=== PATIENT | female | born 1990 | race Caucasian/White ===

== ENCOUNTER 2023-10-01 05:52 | Emergency (ER) | payer MEDICAID ==
[~2023-10-01] VITALS: Ht 170.2 cm; Wt 69.4 kg
[2023-10-01] MEDS ORDERED: Birth control (06:12)
[2023-10-01] MEDS ORDERED: HYDROMORPHONE 1 MG/1 ML DISP.SYRIN ONE (06:45)
[2023-10-01] MEDS ORDERED: ONDANSETRON 4 MG/2 ML VIAL ONE (06:45)
[2023-10-01] MEDS: HYDROMORPHONE 1 MG/1 ML DISP.SYRIN IV ONE (06:49)
[2023-10-01] MEDS: ONDANSETRON 4 MG/2 ML VIAL IV ONE (06:49)
[2023-10-01] MEDS: IV NS 1000 ML 1,000 ML IV ONE ×2 (06:49→07:41)
[2023-10-01 06:51] LABS: BASOPHILS % (AUTO) 0.3 % (0.0-2.0); EOSINOPHILS % (AUTO) 0.3 % (0.0-7.0); HEMATOCRIT 41.1 % (31.2-41.9); HEMOGLOBIN 13.8 g/dL (10.9-14.3); LYMPHOCYTES # (AUTO) 1.5 K/uL (0.8-4.8); LYMPHOCYTES % (AUTO) 11.4 % (20.5-51.5); MEAN CORPUSCULAR HEMOGLOBIN 29.9 uug (24.7-32.8); MEAN CORPUSCULAR HGB CONC 34 g/dL (32.3-35.6); MEAN CORPUSCULAR VOLUME 89.3 fL (75.5-95.3); MONOCYTES # (AUTO) 0.6 K/uL (0.1-1.30); MONOCYTES % (AUTO) 4.7 % (0.0-11.0); NEUTROPHILS # (AUTO) 11.2 K/uL (1.8-8.9); NEUTROPHILS % (AUTO) 83.3 % (38.5-71.5); PLATELET COUNT (AUTO) 198 K/uL (179-408); RED CELL DISTRIBUTION WIDTH 13.2 % (12.3-17.7); WHITE BLOOD COUNT (AUTO) 13.4 K/uL (3.8-11.8)
[2023-10-01 06:52] LABS: *BILIRUBIN,URIN NEGATIVE (NEGATIVE); *BLOOD, URINE 2+ (NEGATIVE); *CLARITY,URINE CLEAR (CLEAR); *COLOR,URINE YELLOW (YELLOW); *KETONES,URINE TRACE (NEGATIVE); *PROTEIN,URINE 1+ (NEGATIVE); *UROBILINOGEN,URINE 0.2 E.U./dl (NORMAL); LEUKOCYTE ESTERASE ,URINE NEGATIVE (NEGATIVE); NITRITE, URINE NEGATIVE (NEGATIVE); PH,URINE 5.5 (5.0-8.0); UGLUCOSE NEGATIVE (NEGATIVE)
[2023-10-01 06:53] LABS: DIFFERENTIAL COMMENT 1
[2023-10-01 07:02] LABS: CALCIUM 9.5 mg/dL (8.5-10.1); CREATININE 0.9 mg/dL (0.6-1.3); MAGNESIUM 2.1 mg/dL (1.8-2.4); POTASSIUM 3.9 mmol/L (3.5-5.1)
[2023-10-01] MEDS ORDERED: KETOROLAC TROMETHAMINE 30 MG INJ ONE (07:21)
[2023-10-01] MEDS: KETOROLAC TROMETHAMINE 30 MG INJ IVP ONE (07:25)
[2023-10-01] MEDS ORDERED: KETO10TA2 PO (09:08)
[2023-10-01] MEDS ORDERED: HYDR-3980 PO (09:08)
[2023-10-01] MEDS ORDERED: ONDA4TAB11 PO (09:08)
[2023-10-01 09:22] VITALS: BP 109/59; TEMP 97.8; O2SAT 100
[2023-10-01 17:08] LABS: WBC,URINE 0-3 /HPF (0-3)
== END 2023-10-01 09:23 | disposition home or self-care (01) ==
LOC: ER 06:13
DX: N20.1 Calculus of ureter (principal); Z79.899 Other long term (current) drug therapy
CPT/HCPCS: 99284; 96374; 96361; 96375; 80048; 81001; 83735; 85025; 36415; J1885; J2405; J1170; J7040 ×2; A4606; A4663